=== PATIENT | male | born 1995 | race Caucasian/White ===

== ENCOUNTER 2016-12-27 22:09 | Emergency (ER) | payer BC ==
[2016-12-27 22:17] VITALS: TEMP 97.9; O2SAT 99
--- NOTE | 2016-12-27 22:18 | EDPHY ---
H & P Stated Complaint: started new meds todaym having a panic reaction HPI/ROS: HPI CHIEF COMPLAINT: "I am feeling very anxious" HISTORY OF PRESENT ILLNESS: This patient very pleasant 21-year-old male, recently diagnosed bipolar last week and started on Latuda and Seroquel. He presents emergency room by private vehicle with his mom for acute anxiety. He is hyperventilating and noted to be tachycardic. Patient reports to me that he feels very anxious. States he is having anxiety attack. Numbness and tingling around his mouth hands and feet. Patient denies suicidal ideation or homicidal ideation denies want hurt himself or anybody else. Past Medical History: Bipolar disorder newly diagnosed Past Surgical History: Denies recent surgery Social History: Edible marijuana this evening. Denies other illicit drugs or alcohol. Family History: Noncontributory. ROS REVIEW OF SYSTEMS: A comprehensive 10 point review of systems is otherwise negative aside from elements mentioned in the history of present illness. Exam Constitutional anxious appearing, triage nursing summary reviewed, vital signs reviewed, awake/alert. Eyes normal conjunctivae and sclera, EOMI, PERRLA. HENT normal inspection, atraumatic, moist mucus membranes, no epistaxis, neck supple/ no meningismus, no raccoon eyes. Respiratory clear to auscultation bilaterally, normal breath sounds, no respiratory distress, no wheezing. Cardiovascular tachycardic, regular rhythm, no murmur, no edema, distal pulses normal. Gastrointestinal soft, non-tender, no rebound, no guarding, normal bowel sounds, no distension, no pulsatile mass. Genitourinary no CVA tenderness. Musculoskeletal no midline vertebral tenderness, full range of motion, no calf swelling, no tenderness of extremities, no meningismus, good pulses, neurovascularly intact. Skin pink, warm, & dry, no rash, skin atraumatic. Neurologic awake, alert and oriented x 3, AAOx3, moves all 4 extremities equally, motor intact, sensory intact, CN II-XII intact, normal cerebellar, normal vision, normal speech. Psychiatric acute anxiety Heme/Lymph/Immune no lymphadenopathy. Differential Diagnosis: Includes but is not limited to in a particular order, acute anxiety attack, panic attack, medication reaction, sundar Medical Decision Making: Plan for this patient he feels very anxious will provide 1 mg p.o. Ativan at this time. Re-evaluate. Re-evaluation: 1211: I did re-evaluate this patient this time is requesting discharge. Mom at bedside. We went over return precautions. This includes want to harm himself or anybody else. Feeling suicidal homicidal. He has no thoughts of harming himself or is suicidal or homicidal at this time. He would like to be discharged from the emergency room. Mom is fine with this plan. He feels much better after 1 mg p.o. Ativan. He has been resting here. Anxiety is well controlled. He does have an outpatient psychiatrist. I recommend that patient follows up with Psychiatry outpatient he does have a outpatient psychiatrist. Return precautions given. Mom at bedside understands. Mom is comfortable this plan. Patient as well. Source: Patient - Personal History Current Tetanus Diphtheria and Acellular Pertussis (TDAP): Yes - Medical/Surgical History Hx Asthma: No Hx Chronic Respiratory Disease: No Hx Diabetes: No Hx Cardiac Disease: No Hx Renal Disease: No Hx Cirrhosis: No Hx Alcoholism: No Hx HIV/AIDS: No Hx Splenectomy or Spleen Trauma: No Other PMH: bipolar pmh- anxiety. kidney stones - Social History Smoking Status: Never smoked Constitutional: Initial Vital Signs Temperature (C) 36.6 C 12/27/16 22:15 Heart Rate 124 H 12/27/16 22:15 Respiratory Rate 22 H 12/27/16 22:15 Blood Pressure 135/83 H 12/27/16 22:15 O2 Sat (%) 99 12/27/16 22:15 O2 Delivery Mode Room Air Allergies/Adverse Reactions: No Known Allergies Allergy (Unverified 02/25/15 18:08) Home Medications: Medication Instructions Recorded Latuda 12/27/16 Seroquel 12/27/16 Medical Decision Making - Data Points Medications Given: Discontinued Medications Lorazepam (Ativan) 1 mg PO ONCE ONE Stop: 12/27/16 22:22 Last Admin: 12/27/16 22:25 Dose: 1 mg Departure - Departure Disposition: Home, Routine, Self-Care Clinical Impression: Anxiety Condition: Good Instructions: Anxiety (ED) Referrals: NONE *PRIMARY CARE P,. [Primary Care Provider] - As per Instructions
[2016-12-27] MEDS ORDERED: LORazepam 1 MG TAB PO ONE (22:21)
[2016-12-28 00:33] VITALS: BP 128/79; PULSE 99; RESP 20
== END 2016-12-28 00:33 | disposition home or self-care (01) ==
DX: F41.9 Anxiety disorder, unspecified (principal)